=== PATIENT | male | born 1980 ===

== ENCOUNTER 2022-11-29 12:04 | Inpatient (IN) | payer OTHER ==
[2022-11-29] VITALS (9 sets, daily range): BP systolic 131–160; BP diastolic 86–112
[~2022-11-29] VITALS: Ht 182.9 cm; Wt 97.8 kg
[2022-11-29 12:48] LABS: BASOPHILS ABSOLUTE AUTO 0.01 K/mm3 (0.00-0.23); BASOPHILS PERCENT AUTO 0 % (0-2); EOSINOPHILS ABSOLUTE AUTO 0.01 K/mm3 (0.00-0.68); EOSINOPHILS PERCENT AUTO 0 % (0-6); Hematocrit 38.6 % (37.0-53.0); Hemoglobin 13.8 g/dL (13.5-17.5); IMMATURE GRAN ABSOLUTE AUTO 0.03 K/mm3 (0.00-0.10); IMMATURE GRAN PERCENT AUTO 0 % (0-1); LYMPHOCYTES ABSOLUTE AUTO 0.73 K/mm3 (0.84-5.20); LYMPHOCYTES PERCENT AUTO 9 % (21-46); MONOCYTES ABSOLUTE AUTO 1.18 K/mm3 (0.16-1.47); MONOCYTES PERCENT AUTO 15 % (4-13); Mean Corpuscular HGB 33.5 pg (26.0-34.0); Mean Corpuscular HGB Conc 35.8 g/dL (31.5-36.5); Mean Corpuscular Volume 94 fL (80-100); Mean Platelet Volume 10.7 fL (9.1-12.4); NEUTROPHILS ABSOLUTE AUTO 5.88 K/mm3 (1.96-9.15); NEUTROPHILS PERCENT AUTO 75 % (41-73); Platelet Count 97 K/mm3 (150-400); RDW Coefficient Variation 11.8 % (11.7-14.2); RDW Standard Deviation 40.7 fL (35.1-46.3); Red Blood Cell Count 4.12 M/mm3 (4.30-5.90); White Blood Cell Count 7.84 K/mm3 (4.00-11.30)
[2022-11-29 13:05] LABS: Albumin, Blood 2.9 g/dL (3.4-5.0); Albumin/Globulin Ratio 0.8 (0.8-1.8); Bilirubin, Direct 1.3 mg/dL (0.0-0.3); Bilirubin, Indirect 0.7 mg/dL (0.1-0.7); Bun/Creatinine Ratio 33.9 (12.0-20.0); Calcium, Blood 8.4 mg/dL (8.5-10.1); Creatinine, Blood 0.62 mg/dL (0.60-1.20); Globulin, Blood 3.5 g/dL (2.2-4.0); Magnesium, Blood 2.2 mg/dL (1.6-2.4); Potassium, Blood 3.7 mmol/L (3.5-5.5); Total Protein, Blood 6.4 g/dL (6.4-8.2)
[2022-11-29] MEDS ORDERED: BISM300CH PO (13:56)
[2022-11-29] MEDS ORDERED: BUPR150ER PO (13:56)
[2022-11-29] MEDS ORDERED: DEXA1 PO (13:57)
[2022-11-29] MEDS ORDERED: CATAPRES-TTS 11 EAC1 PO (13:57)
[2022-11-29] MEDS ORDERED: FOLI1 PO (13:58)
[2022-11-29] MEDS ORDERED: HYDPAM50 (13:58)
[2022-11-29] MEDS ORDERED: IBUP400 (13:58)
[2022-11-29] MEDS ORDERED: GABA300 PO (13:58)
[2022-11-29] MEDS ORDERED: Ativan1 MG PO (13:59)
[2022-11-29] MEDS ORDERED: LORA2 PO (14:03)
[2022-11-29] MEDS ORDERED: LORA1 PO ×2 (14:04→14:05)
[2022-11-29] MEDS ORDERED: MELATONIN5 M1 (14:05)
[2022-11-29] MEDS ORDERED: OMEP20ER PO (14:06)
[2022-11-29] MEDS ORDERED: NICOTINE LOZENGE2 MG (14:06)
[2022-11-29] MEDS ORDERED: NAPR220 (14:06)
[2022-11-29] MEDS ORDERED: METO25 (14:06)
[2022-11-29] MEDS ORDERED: B-1100 M1 (14:07)
[2022-11-29] MEDS ORDERED: PROM25 (14:07)
[2022-11-29] MEDS ORDERED: TRAZ50 (14:08)
--- NOTE | 2022-11-29 18:45 | NUR ---
ICU ADMISSION: REPORT RECEIVED FROM MAYITO Gomez RN IN ED. PT ARRIVED TO ICU-08 AT APPROX 1840. ON ARRIVAL THE PT IS ABLE TO STAND & TX FROM GURNEY TO BED W/ MINIMAL ASSIST & VERBAL CUES. HE HAS LAID IN BED & QUICKLY RESUMED SLEEPING. BED ALARM & MONITORS ON, VSS. UNABLE TO COMPLETE ADMISSION R/T PT's OVERALL SOMNOLENCE AFTER MEDS PER EMAR. WILL CONTINUE TO MONITOR & REPORT OFF TO ONCOMING RN.
[2022-11-30] VITALS (34 sets, daily range): BP systolic 91–166; BP diastolic 61–110
[2022-11-30 02:58] LABS: BASOPHILS ABSOLUTE AUTO 0.01 K/mm3 (0.00-0.23); BASOPHILS PERCENT AUTO 0 % (0-2); EOSINOPHILS ABSOLUTE AUTO 0.03 K/mm3 (0.00-0.68); EOSINOPHILS PERCENT AUTO 1 % (0-6); Hematocrit 41.9 % (37.0-53.0); Hemoglobin 14.6 g/dL (13.5-17.5); IMMATURE GRAN ABSOLUTE AUTO 0.01 K/mm3 (0.00-0.10); IMMATURE GRAN PERCENT AUTO 0 % (0-1); LYMPHOCYTES ABSOLUTE AUTO 0.93 K/mm3 (0.84-5.20); LYMPHOCYTES PERCENT AUTO 17 % (21-46); MONOCYTES ABSOLUTE AUTO 0.77 K/mm3 (0.16-1.47); MONOCYTES PERCENT AUTO 14 % (4-13); Mean Corpuscular HGB 33.3 pg (26.0-34.0); Mean Corpuscular HGB Conc 34.8 g/dL (31.5-36.5); Mean Corpuscular Volume 95 fL (80-100); Mean Platelet Volume 10.4 fL (9.1-12.4); NEUTROPHILS ABSOLUTE AUTO 3.58 K/mm3 (1.96-9.15); NEUTROPHILS PERCENT AUTO 67 % (41-73); Platelet Count 89 K/mm3 (150-400); RDW Coefficient Variation 12.1 % (11.7-14.2); RDW Standard Deviation 42.5 fL (35.1-46.3); Red Blood Cell Count 4.39 M/mm3 (4.30-5.90); White Blood Cell Count 5.33 K/mm3 (4.00-11.30)
[2022-11-30 03:12] LABS: Albumin/Globulin Ratio 0.9 (0.8-1.8); Bilirubin, Total 2.5 mg/dL (0.1-1.0); Bun/Creatinine Ratio 29.5 (12.0-20.0); Creatinine, Blood 0.71 mg/dL (0.60-1.20); Globulin, Blood 3.4 g/dL (2.2-4.0); Magnesium, Blood 2.2 mg/dL (1.6-2.4); Potassium, Blood 3.6 mmol/L (3.5-5.5); Total Protein, Blood 6.4 g/dL (6.4-8.2)
--- NOTE | 2022-11-30 06:06 | NUR ---
PATIENT MENTATION IMPROVING. NOW AOX2. CIWA SCORES OF 9-15 OVERNIGHT. PRECEDEX GTT INFUSING AND 4MG ATIVAN GIVEN OVERNIGHT. SB/SR WITH STABLE BP. NASAL CANNULA REMOVED AND PATIENT ON ROOM AIR. NPO. CONDOM CATHETER IN PLACE.
--- NOTE | 2022-11-30 08:15 | NUR ---
ASSUMED CARE: REPORT RECEIVED FROM JEREMY Mane RN. ASSUMED CARE OF THIS PT AT APPROX 0700. ON ASSESSMENT, THE PT IS RESTING QUIETLY. HE AWAKENS SPONTANEOUSLY & IS ASKING WHEN HE WILL BE ABLE TO GO HOME. POC HAS BEEN DISCUSSED & THE PT IS AGREEABLE TO STAYING FOR CONTINUED TX. LS CLEAR, PT ON RA W/ O2 SATS > 92%. MONITOR SHOWS SB-SR W/ HR 50-60s, BP STABLE. HE STS FEELING HUNGRY, WILL ADDRESS DIET ORDER W/ PROVIDER THIS AM. NO OTHER GI COMPLAINTS. VOIDS URINE W/O DIFFICULTY, REQUESTS TO STAND AT BEDSIDE & IS ABLE TO DO SO W/ 2 STAFF ASSIST FOR FIRST TIME OOB. HE IS OVERALL STEADY ON HIS FEET BUT DOES NEED REMINDERS OF FALL PRECAUTIONS. SKIN CONDITION OVERALL INTACT, PT REPOSITIONS SELF FOR COMFORT PRN. PRECEDEX INFUSING FOR ETOH W/D MANAGEMENT - SEE CIWA. WILL CONTINUE TO MONITOR & UPDATE NEEDED.
--- NOTE | 2022-11-30 18:22 | NUR ---
DAY SHIFT SUMMARY THIS RN ASSUMED CARE OF THE PT AT APPROX 1700. PT HAS BEEN ALERT AND ORIENTED IN HIS RM ON RM AIR. VS HAVE BEEN STABLE W MONITOR SHOWING SR 60'S. BP WNL AND STABLE. PT HAS PRECEDEX GTT RUNNING AT 0.4 MCG/KG/HR. PT HAS SLIGHT TREMOR BUT DENYING ANY NAUSEA OR HEADACHES. PT ABLE TO EAT DINNER INDEPENDENTLY. PT IS CURRENTLY SITTING UPRIGHT IN BED DENYING ANY FURTHER NEEDS AT THIS TIME. WILL REPORT TO ONCOMING RN.
--- NOTE | 2022-11-30 20:35 | NUR ---
ASSUMPTION OF CARE/ASSESSMENT: ASSUMED CARE OF PT AT 1900. PT IN BED, AWAKE AND A&O X 4. PT OBSERVED TO BE WITHDRAWN AND PT STATES THE HE IS FEELING ANXIOUS; CIWA-9. PT MEDICATED WITH ATIVAN AND LIBRIUM PER EMAR. PT ON RA WITH CLEAR LUNG SOUNDS THROUGHOUT; PT DENIES SOB AT THIS TIME. SR ON MONITOR WITH HR 60-70'S AND SBP 90'S; PT DENIES CHEST PAIN/PRESSURE AT THIS TIME. PT HAS CONDOM CATH IN PLACE THAT IS DRAINING TO GRAVITY; JOANNE COLORED URINE OUTPUT. PT UP TO BEDSIDE COMMODE WITH SBA. PT OBSERVED TO BE UNBALANCED AND VERY TREMOROUS; WALKER BROUGHT IN TO HELP STEADY PT DURING TRANSFERS. PT ABLE TO MOVE IN BED INDEPENDENTLY. SKIN INTACT AND WARM. PRECEDEX GTT @ 0.4 MCG/KG/HR. PT'S FATHER CALLED UNIT AND UPDATED ON PT'S STATUS; ALL QUESTIONS ANSWERED AT THIS TIME. BED LOWERED, CALL LIGHT IN REACH.
[2022-12-01] VITALS (14 sets, daily range): BP systolic 104–144; BP diastolic 69–102
--- NOTE | 2022-12-01 06:00 | NUR ---
SHIFT SUMMARY: NO ACUTE CHANGES THROUGHOUT THE NIGHT. PT WOKE UP AROUND 0030 AND WAS STATING THAT HE WANTED TO LEAVE AND GO HOME; PT STATED THAT HE FELT UNCOMFORTABLE AND THAT THIS TREATMENT FROM THE HOSPITAL WAS "OVERKILL." PT EDUCATED REGARDING LEAVING AMA WHILE GOING THROUGH ALCOHOL WITHDRAWLS AND THE RISKS ASSOCIATED. PT VERBALIZED HIS UNDERSTANDING AND STATED THAT HE DIDN'T WANT TO LEAVE UNTIL HE ARRANGED A RIDE HOME SINCE HE LIVES IN [place]. PRECEDEX GTT PLACED ON SB AT THIS TIME. PT CIWA 7-9 THIS SHIFT AND PT GIVEN 2 MG ATIVAN AND 25 MG LIBRIUM TOTAL FOR THE SHIFT. PT RELUCTANT TO TAKE MEDICATIONS AT THIS TIME; PT STATES THAT HE DOESN'T LIKE THE WAY THEY MAKE HIM FEEL. PT EDUCATED REGARDING IMPORTANCE OF MEDS DURING ALCOHOL WITHDRAWLS; PT STATES UNDERSTANDING. PT VSS THROUGHOUT THE NIGHT, AND IS USING CALL LIGHT APPROPRIATELY. PT UP TO TOILET IN BATHROOM WITH SBA TO HELP WITH CORDS AND IS MORE STEADY ON FEET. PT INDEPENDENT WITH BED MOBILITY. BED LOWERED, CALL LIGHT IN REACH.
--- NOTE | 2022-12-01 08:18 | NUR ---
ASSUMED CARE REPORT FROM MIGUELITO PAK AT 0700. PT RESTING IN BED. A&OX 3. FOLLOWS COMMANDS. STATES HE WANTS TO LEAVE. REPORTS THAT HE HAS PLAN SET UP TO GO INTO [facility] IN [place] UPON DISCHARGE. PT REFUSING MEDS. STATES HE DOES NOT LIKE HOW THEY MAKE HIM FEEL. [place] 5, PT TREMOROUS ONLY. REPORTS HE HAS THESE CHRONICALLY. DENIES OTHER SYMPTOMS. CONTACTED BOTH [facility] AND [facility] FOR PLAN AND LEFT MESSAGE. UPDATED PT ON PLAN OF CARE. WILL CONTINUE TO MONITOR.
[2022-12-01] MEDS ORDERED: CHLO25 PO (11:23)
--- NOTE | 2022-12-01 11:30 | NUR ---
DISCHARGE DR GILBERT ROUNDED. D/C ORDERED SUBMITTED. REVIEWED D/C INSTRUCTIONS c PT. PT VERBALIZED UNDERSTANDING. PT TO BE TRANSPORTED TO [place] TO ETOH TREATMENT FACILITY. MARIA EUGENIA ARRANGED c BY DONIS PAK. PT TO BE PICKED UP AT 1315 AT ER ENTRANCE. PT REQUESTING TO WAIT OUTSIDE. APPROVED c LEGAL OFFICER. MEDS FROM [facility] SENT c PT (NICOTINE PATCHES AND LOZENGE, FOLIC ACID, THIAMINE, NARCAN, NALTREXONE, WELLBUTRIN, OMPEROZOLE, NYSTATIN, AND DRAMINE) GIVEN TO PT. [place] AT [facility] UPDATED BY DONIS PAK.
== END 2022-12-01 11:46 | disposition home or self-care (01) | DRG 896 ==
LOC: ER 12:04 → ICUE 14:00
PROVIDERS: Student in an Organized Health Care Education/Training Program; ADMIT Internal Medicine
PROC: HZ2ZZZZ Detoxification Services for Substance Abuse Treatment (ICD-10-PCS; principal; 2022-11-29)
DX: F10.131 Alcohol abuse with withdrawal delirium (principal); G92.9 Unspecified toxic encephalopathy; F32.A Depression, unspecified; F41.9 Anxiety disorder, unspecified; I10 Essential (primary) hypertension; F17.210 Nicotine dependence, cigarettes, uncomplicated
CPT/HCPCS: 36415; 80048; 80053; 80076; 83690; 83735; 85025; 93005; 93010; 94760; 94762; 96374; 96375; 99285-25; A9270; J1790; J2060; J2560; J3411; J7050; J7120